=== PATIENT | male | born 1925 | race Caucasian/White ===

== ENCOUNTER 2017-03-02 12:15 | Inpatient (IN) | payer OTHER, MEDICARE ==
[2017-03-02] VITALS (8 sets, daily range): BP systolic 95–114; BP diastolic 61–87
[~2017-03-02] VITALS: Ht 162.6 cm; Wt 104.1 kg
[~2017-03-02 12:15] MED LIST: ADVAIR 250-501 EACH IH; ASPIR-LOW81 M1 PO
[2017-03-02 12:54] LABS: HEMATOCRIT 47.5 % (38.0-50.0); MCH 29.8 PG (29.0-34.0); MCHC 29.7 G/DL (30.0-36.0); MCV 100.4 FL (86-99); MEAN PLAT.VOLUME 9.1 uM^3 (9.0-12.4); NRBC (%) 0.3 /100 WBC (0-0); PLATELET COUNT 205 K/uL (156-360); RBC DIS.WIDTH-CV 12.9 % (11.8-14.6); RBC DIS.WIDTH-SD 48.4 % (39-53); RED BLOOD COUNT 4.73 M/uL (4.00-5.50); WHITE BLOOD COUNT 6.4 K/uL (4.1-10.2)
[2017-03-02 12:54] LABS: CARBON DIOXIDE (BICARBONATE) > 40.0 MEQ/L (20-31); VENOUS PCO2 90 mm Hg (41-51)
[2017-03-02 13:05] LABS: CHLORIDE 100 mEq/L (99-109); POTASSIUM 4.8 mEq/L (3.7-5.4); SODIUM 144 mEq/L (136-147)
[2017-03-02 13:07] LABS: GLUCOSE 165 mg/dL (70-99)
[2017-03-02 13:08] LABS: ANION GAP 9 MEQ/L (2-14)
[2017-03-02 13:10] LABS: GFR ESTIMATE (CALCULATED) > 59 mL/min/
[2017-03-02 13:11] LABS: UREA NITROGEN (BUN) 40 mg/dL (9-23)
[2017-03-02 13:20] LABS: TROP-I INTERPRETATION NEGATIVE; TROPONIN-I 0.03 ng/mL (0.0-0.30)
[2017-03-02 13:35] LABS: EOSINOPHIL (%) 0.2 % (0-5); IMMATURE GRANULOCYTE (%) 0.3 % (0.0-0.7); INSTRUMENT ABS NEUTROPHIL CT 4.4 K/uL; LYMPHOCYTE COUNT 1.1 K/uL (1.0-2.8); MONOCYTE (%) 13.8 % (3-12); MONOCYTE COUNT 0.9 K/uL (0-0.8); NEUTROPHIL (%) 68.1 % (45-76); NEUTROPHIL COUNT 4.4 K/uL (1.8-6.4)
[2017-03-02 14:20] LABS: BASE EXCESS 7.1 mEq/L (-3 to +3); BICARBONATE 36.3 mEq/L (22-26); CARBOXY HGB 2.5 % (0-5); COMMENTS - BLOOD GASES A+C+; DEVICE 840; MODE SPONT; PCO2 72 mm Hg (35-45); PEEP 5 CM/H20; PO2 51 mm Hg (80-100); PRES. SUPPORT 10 CM/H2O; SITE LR; TOTAL RESP RATE 20 resp/min; pH 7.31 (7.35-7.45)
[2017-03-02] MEDS ORDERED: AZITHROMYCIN250 MG PO (15:17)
[2017-03-02] MEDS ORDERED: SPIRIVA1 INHALATI IH (15:17)
[2017-03-02] MEDS ORDERED: PREDNISONE20 MG PO (15:17)
[2017-03-02] MEDS ORDERED: ADVAIR 250/501 DISK IH (15:18)
[2017-03-02] MEDS ORDERED: METFORMIN HCL500 MG PO (15:19)
[2017-03-02] MEDS ORDERED: FUROSEMIDE40 MG PO (15:20)
[2017-03-02] MEDS ORDERED: LATANOPROST2.5 ML BOTH EYES (15:21)
[2017-03-02] MEDS ORDERED: POTASSIUM CHLO20 ME1 PO (15:21)
[2017-03-02] MEDS ORDERED: IRON18 MG PO (15:22)
[2017-03-02] MEDS ORDERED: SIMVASTATIN20 MG PO (15:22)
[2017-03-02 18:33] LABS: POINT-OF-CARE METER ID UU14208751
[2017-03-02 19:00] LABS: MAGNESIUM 2.3 mg/dL (1.3-2.7)
[2017-03-02 19:20] LABS: BASE EXCESS 5.6 mEq/L (-3 to +3); BICARBONATE 33.1 mEq/L (22-26); CARBOXY HGB 2.3 % (0-5); COMMENTS - BLOOD GASES C+; DEVICE 840; FI02 100 %; METHEMOGLOBIN 1.3 % (0-1.5); MODE NSPONT; PCO2 60 mm Hg (35-45); PEEP 8 CM/H20; PO2 67 mm Hg (80-100); PRES. SUPPORT 12 CM/H2O; SITE LR; TOTAL RESP RATE 22 resp/min; pH 7.35 (7.35-7.45)
[2017-03-02 21:39] LABS: ADD MIUA? YES; BILIRUBIN NEGATIVE; BLOOD LARGE; COLOR YELLOW ((YELLOW)); GLUCOSE (STRIP) NEGATIVE; KETONES NEGATIVE; LEUKOCYTES NEGATIVE; NITRITE NEGATIVE; PROTEIN (STRIP) NEGATIVE; SPECIFIC GRAVITY 1.012 (1.000-1.030); UROBILINOGEN 0.2 MG/DL (0.2-1.0)
[2017-03-02 22:12] LABS: METH RESISTANT S AUREUS PCR NEGATIVE (NEGATIVE)
[2017-03-02 22:13] LABS: PROBE CHECK PASS; SPECIMEN PROCESSING CONTROL PASS
[2017-03-02 22:32] LABS: BACTERIA 1+ /HPF; EPITHELIAL CELLS 2+ /HPF; MUCUS NONE SEEN /LPF; RED BLOOD CELLS TNTC /HPF (0-5); UCUL ADDED? NO; WHITE BLOOD CELLS 0-5 /HPF (0-5)
[2017-03-03] VITALS (21 sets, daily range): BP systolic 41–118; BP diastolic 29–77
[2017-03-03 00:15] LABS: POINT-OF-CARE METER ID UU14174217
[2017-03-03 01:01] LABS: CREATINE KINASE 120 IU/L (1-294); TOTAL CK 120 IU/L (1-294)
[2017-03-03 01:09] LABS: CK-MB 1.2 ng/mL (0.0-4.9); TROP-I INTERPRETATION NEGATIVE; TROPONIN-I 0.02 ng/mL (0.0-0.30)
[2017-03-03 05:38] LABS: EOSINOPHIL (%) 0 % (0-5); HEMATOCRIT 42.1 % (38.0-50.0); IMMATURE GRANULOCYTE (%) 0.4 % (0.0-0.7); INSTRUMENT ABS NEUTROPHIL CT 4.2 K/uL; LYMPHOCYTE COUNT 0.3 K/uL (1.0-2.8); MCH 29.6 PG (29.0-34.0); MCHC 30.4 G/DL (30.0-36.0); MCV 97.5 FL (86-99); MEAN PLAT.VOLUME 9.7 uM^3 (9.0-12.4); MONOCYTE COUNT 0.4 K/uL (0-0.8); NEUTROPHIL (%) 85.1 % (45-76); NEUTROPHIL COUNT 4.2 K/uL (1.8-6.4); PLATELET COUNT 181 K/uL (156-360); RBC DIS.WIDTH-CV 12.7 % (11.8-14.6); RBC DIS.WIDTH-SD 45.9 % (39-53); RED BLOOD COUNT 4.32 M/uL (4.00-5.50); WHITE BLOOD COUNT 4.9 K/uL (4.1-10.2)
[2017-03-03 06:03] LABS: TROP-I INTERPRETATION NEGATIVE; TROPONIN-I 0.02 ng/mL (0.0-0.30)
[2017-03-03 06:29] LABS: ANION GAP 4 MEQ/L (2-14); CHLORIDE 99 MEQ/L (99-109); CREATINE KINASE 34 IU/L (1-294); GFR ESTIMATE (CALCULATED) 55 mL/min/; MAGNESIUM 2.8 mg/dl (1.3-2.7); SAMPLE HEMOLYSIS CHECK 0; SAMPLE ICTERIC CHECK 0; SAMPLE LIPEMIA CHECK 0; SODIUM 140 MEQ/L (136-147); TOTAL CK 34 IU/L (1-294); UREA NITROGEN (BUN) 44 mg/dL (9-23)
[2017-03-03 06:30] LABS: GLUCOSE 296 mg/dL (70-99)
[2017-03-03 07:32] LABS: CK-MB 1.2 ng/mL (0.0-4.9)
[2017-03-03 08:25] LABS: INTERNAL CONTROL VALID? YES
[2017-03-03 13:15] LABS: CREATINE KINASE 47 IU/L (1-294); TOTAL CK 47 IU/L (1-294)
[2017-03-03 13:26] LABS: CK-MB 1.7 ng/mL (0.0-4.9)
[2017-03-03 13:45] LABS: TROP-I INTERPRETATION NEGATIVE; TROPONIN-I 0.03 ng/mL (0.0-0.30)
[2017-03-03] MEDS ORDERED: IRON325 M1 PO (16:10)
[2017-03-03 17:58] LABS: POINT-OF-CARE METER ID UU14208751
[2017-03-03 19:13] LABS: TROP-I INTERPRETATION NEGATIVE; TROPONIN-I 0.03 ng/mL (0.0-0.30)
[2017-03-03 19:25] LABS: TOTAL CK 93 IU/L (1-294)
[2017-03-03 19:33] LABS: CREATINE KINASE 93 IU/L (1-294)
[2017-03-04] VITALS (13 sets, daily range): BP systolic 100–141; BP diastolic 58–99
[2017-03-04 01:50] LABS: BASE EXCESS 8.9 mEq/L (-3 to +3); BICARBONATE 35.9 mEq/L (22-26); CARBOXY HGB 2.1 % (0-5); METHEMOGLOBIN 1.5 % (0-1.5); PCO2 58 mm Hg (35-45); PO2 77 mm Hg (80-100)
[2017-03-04 01:51] LABS: COMMENTS - BLOOD GASES A+C+; DEVICE NRB; FI02 100 %; O2 FLOW 15 L/MIN; SITE LR; TOTAL RESP RATE 20 resp/min
[2017-03-04 05:31] LABS: POINT-OF-CARE METER ID UU14162636
[2017-03-04 05:40] LABS: EOSINOPHIL (%) 0 % (0-5); IMMATURE GRANULOCYTE (%) 0.4 % (0.0-0.7); INSTRUMENT ABS NEUTROPHIL CT 6.8 K/uL; LYMPHOCYTE COUNT 0.5 K/uL (1.0-2.8); MCHC 31.1 G/DL (30.0-36.0); MCV 96.3 FL (86-99); MEAN PLAT.VOLUME 9.4 uM^3 (9.0-12.4); MONOCYTE (%) 4.4 % (3-12); MONOCYTE COUNT 0.3 K/uL (0-0.8); NEUTROPHIL (%) 89.2 % (45-76); NEUTROPHIL COUNT 6.8 K/uL (1.8-6.4); PLATELET COUNT 228 K/uL (156-360); RBC DIS.WIDTH-CV 12.6 % (11.8-14.6); RBC DIS.WIDTH-SD 44.9 % (39-53); RED BLOOD COUNT 4.57 M/uL (4.00-5.50); WHITE BLOOD COUNT 7.7 K/uL (4.1-10.2)
[2017-03-04 06:07] LABS: ANION GAP 9 MEQ/L (2-14); CHLORIDE 99 MEQ/L (99-109); GFR ESTIMATE (CALCULATED) 55 mL/min/; GLUCOSE 184 mg/dL (70-99); MAGNESIUM 2.5 mg/dl (1.3-2.7); POTASSIUM 4.3 MEQ/L (3.7-5.4); SAMPLE HEMOLYSIS CHECK 0; SAMPLE ICTERIC CHECK 0; SAMPLE LIPEMIA CHECK 0; SODIUM 140 MEQ/L (136-147); UREA NITROGEN (BUN) 45 mg/dL (9-23)
[2017-03-04 17:48] LABS: BICARBONATE 34.3 mEq/L (22-26); CARBOXY HGB 1.9 % (0-5); METHEMOGLOBIN 1.3 % (0-1.5); PCO2 58 mm Hg (35-45); pH 7.38 (7.35-7.45)
[2017-03-04 17:49] LABS: COMMENTS - BLOOD GASES C+NA; PO2 60 mm Hg (80-100); SITE RR
[2017-03-04 17:50] LABS: DEVICE HEATED HIGH FLOW NC; FI02 70 %; O2 FLOW 50 L/MIN
[2017-03-05] VITALS (9 sets, daily range): BP systolic 98–131; BP diastolic 58–87
[2017-03-05 05:42] LABS: EOSINOPHIL (%) 0 % (0-5); HEMATOCRIT 46.7 % (38.0-50.0); IMMATURE GRANULOCYTE (%) 0.6 % (0.0-0.7); INSTRUMENT ABS NEUTROPHIL CT 4.3 K/uL; LYMPHOCYTE COUNT 0.4 K/uL (1.0-2.8); MCH 29.5 PG (29.0-34.0); MCV 94.9 FL (86-99); MEAN PLAT.VOLUME 9.5 uM^3 (9.0-12.4); MONOCYTE (%) 6.9 % (3-12); MONOCYTE COUNT 0.4 K/uL (0-0.8); NEUTROPHIL COUNT 4.3 K/uL (1.8-6.4); PLATELET COUNT 256 K/uL (156-360); RBC DIS.WIDTH-CV 12.7 % (11.8-14.6); RBC DIS.WIDTH-SD 44.6 % (39-53); RED BLOOD COUNT 4.92 M/uL (4.00-5.50); WHITE BLOOD COUNT 5.1 K/uL (4.1-10.2)
[2017-03-05 06:15] LABS: ANION GAP 7 MEQ/L (2-14); CHLORIDE 99 MEQ/L (99-109); GFR ESTIMATE (CALCULATED) 43 mL/min/; GLUCOSE 219 mg/dL (70-99); MAGNESIUM 2.7 mg/dl (1.3-2.7); SAMPLE HEMOLYSIS CHECK 0; SAMPLE ICTERIC CHECK 0; SAMPLE LIPEMIA CHECK 0; SODIUM 141 MEQ/L (136-147); UREA NITROGEN (BUN) 54 mg/dL (9-23)
[2017-03-05 09:15] LABS: POINT-OF-CARE METER ID UU14162636
[2017-03-05 12:33] LABS: POINT-OF-CARE METER ID UU14162636
[2017-03-05 18:04] LABS: POINT-OF-CARE METER ID UU14162636
[2017-03-06] VITALS (16 sets, daily range): BP systolic 101–164; BP diastolic 57–82
[2017-03-06 05:28] LABS: POINT-OF-CARE METER ID UU14174217
[2017-03-06 05:47] LABS: EOSINOPHIL (%) 0 % (0-5); HEMATOCRIT 46.9 % (38.0-50.0); IMMATURE GRANULOCYTE (%) 0.4 % (0.0-0.7); INSTRUMENT ABS NEUTROPHIL CT 4.8 K/uL; LYMPHOCYTE COUNT 0.4 K/uL (1.0-2.8); MCH 29.8 PG (29.0-34.0); MCHC 31.8 G/DL (30.0-36.0); MCV 93.8 FL (86-99); MEAN PLAT.VOLUME 9.6 uM^3 (9.0-12.4); MONOCYTE (%) 5.7 % (3-12); MONOCYTE COUNT 0.3 K/uL (0-0.8); NEUTROPHIL COUNT 4.8 K/uL (1.8-6.4); PLATELET COUNT 239 K/uL (156-360); RBC DIS.WIDTH-CV 12.6 % (11.8-14.6); RBC DIS.WIDTH-SD 43.5 % (39-53); WHITE BLOOD COUNT 5.6 K/uL (4.1-10.2)
[2017-03-06 06:41] LABS: ANION GAP 7 MEQ/L (2-14); CHLORIDE 100 MEQ/L (99-109); GFR ESTIMATE (CALCULATED) 47 mL/min/; GLUCOSE 246 mg/dL (70-99); MAGNESIUM 2.4 mg/dl (1.3-2.7); POTASSIUM 4.1 MEQ/L (3.7-5.4); SAMPLE HEMOLYSIS CHECK 0; SAMPLE ICTERIC CHECK 0; SAMPLE LIPEMIA CHECK 0; SODIUM 139 MEQ/L (136-147); UREA NITROGEN (BUN) 54 mg/dL (9-23)
[2017-03-07 03:00] VITALS: BP 128/70
[2017-03-07 05:43] LABS: EOSINOPHIL (%) 0 % (0-5); HEMATOCRIT 46.1 % (38.0-50.0); IMMATURE GRANULOCYTE (%) 0.3 % (0.0-0.7); INSTRUMENT ABS NEUTROPHIL CT 5.7 K/uL; LYMPHOCYTE COUNT 0.5 K/uL (1.0-2.8); MCH 29.4 PG (29.0-34.0); MCHC 31.9 G/DL (30.0-36.0); MCV 92.2 FL (86-99); MEAN PLAT.VOLUME 9.4 uM^3 (9.0-12.4); MONOCYTE (%) 6.6 % (3-12); MONOCYTE COUNT 0.4 K/uL (0-0.8); NEUTROPHIL (%) 85.3 % (45-76); NEUTROPHIL COUNT 5.7 K/uL (1.8-6.4); PLATELET COUNT 227 K/uL (156-360); RBC DIS.WIDTH-CV 12.4 % (11.8-14.6); WHITE BLOOD COUNT 6.7 K/uL (4.1-10.2)
[2017-03-07 06:12] LABS: ANION GAP 5 MEQ/L (2-14); CHLORIDE 97 MEQ/L (99-109); GFR ESTIMATE (CALCULATED) 43 mL/min/; GLUCOSE 230 mg/dL (70-99); MAGNESIUM 2.3 mg/dl (1.3-2.7); POTASSIUM 3.9 MEQ/L (3.7-5.4); SAMPLE HEMOLYSIS CHECK 0; SAMPLE ICTERIC CHECK 0; SAMPLE LIPEMIA CHECK 0; SODIUM 136 MEQ/L (136-147); UREA NITROGEN (BUN) 49 mg/dL (9-23)
[2017-03-07 09:13] VITALS: BP 121/61
[2017-03-07 11:53] VITALS: BP 129/76
[2017-03-07 12:03] LABS: POINT-OF-CARE USER ID NUTSLF44
[2017-03-07 16:57] VITALS: BP 126/68
[2017-03-07 19:30] VITALS: BP 127/73
[2017-03-08] VITALS: BP 122/76
[2017-03-08 04:02] VITALS: BP 124/70
[2017-03-08 05:47] LABS: EOSINOPHIL (%) 0 % (0-5); HEMATOCRIT 47.9 % (38.0-50.0); IMMATURE GRANULOCYTE (%) 0.4 % (0.0-0.7); LYMPHOCYTE COUNT 0.4 K/uL (1.0-2.8); MCH 29.6 PG (29.0-34.0); MCHC 32.2 G/DL (30.0-36.0); MCV 92.1 FL (86-99); MEAN PLAT.VOLUME 9.7 uM^3 (9.0-12.4); MONOCYTE (%) 5.6 % (3-12); MONOCYTE COUNT 0.4 K/uL (0-0.8); PLATELET COUNT 225 K/uL (156-360); RBC DIS.WIDTH-CV 12.3 % (11.8-14.6); RBC DIS.WIDTH-SD 41.9 % (39-53); WHITE BLOOD COUNT 7.8 K/uL (4.1-10.2)
[2017-03-08 06:19] LABS: ANION GAP 5 MEQ/L (2-14); CHLORIDE 96 MEQ/L (99-109); GFR ESTIMATE (CALCULATED) 41 mL/min/; GLUCOSE 209 mg/dL (70-99); MAGNESIUM 2.4 mg/dl (1.3-2.7); POTASSIUM 4.5 MEQ/L (3.7-5.4); SAMPLE HEMOLYSIS CHECK 0; SAMPLE ICTERIC CHECK 0; SAMPLE LIPEMIA CHECK 0; SODIUM 137 MEQ/L (136-147); UREA NITROGEN (BUN) 47 mg/dL (9-23)
[2017-03-08 09:38] VITALS: BP 126/72
[2017-03-08 12:02] VITALS: BP 138/79
[2017-03-08 12:15] LABS: POINT-OF-CARE USER ID ENVKC36
[2017-03-08 13:28] LABS: BASE EXCESS 4.5 mEq/L (-3 to +3); BICARBONATE 30.9 mEq/L (22-26); CARBOXY HGB 1.9 % (0-5); COMMENTS - BLOOD GASES +C; DEVICE NC; METHEMOGLOBIN 1.5 % (0-1.5); O2 FLOW 5 L/MIN; PCO2 51 mm Hg (35-45); PO2 56 mm Hg (80-100); SITE RR +A; TOTAL RESP RATE 24 resp/min; pH 7.39 (7.35-7.45)
[2017-03-08 16:46] LABS: POINT-OF-CARE USER ID ENVKC36
[2017-03-08 17:39] VITALS: BP 142/72
[2017-03-08 19:15] VITALS: BP 132/76
[2017-03-09] VITALS (7 sets, daily range): BP systolic 110–149; BP diastolic 58–83
[2017-03-09 05:15] LABS: EOSINOPHIL (%) 0 % (0-5); HEMATOCRIT 46.5 % (38.0-50.0); IMMATURE GRANULOCYTE (%) 0.5 % (0.0-0.7); INSTRUMENT ABS NEUTROPHIL CT 6.7 K/uL; LYMPHOCYTE COUNT 0.3 K/uL (1.0-2.8); MCH 30.9 PG (29.0-34.0); MCHC 33.5 G/DL (30.0-36.0); MCV 92.1 FL (86-99); MEAN PLAT.VOLUME 9.9 uM^3 (9.0-12.4); MONOCYTE (%) 4.2 % (3-12); MONOCYTE COUNT 0.3 K/uL (0-0.8); NEUTROPHIL (%) 90.7 % (45-76); NEUTROPHIL COUNT 6.7 K/uL (1.8-6.4); PLATELET COUNT 211 K/uL (156-360); RBC DIS.WIDTH-CV 12.6 % (11.8-14.6); RBC DIS.WIDTH-SD 42.5 % (39-53); RED BLOOD COUNT 5.05 M/uL (4.00-5.50); WHITE BLOOD COUNT 7.4 K/uL (4.1-10.2)
[2017-03-09 05:44] LABS: ANION GAP 11 MEQ/L (2-14); CHLORIDE 96 MEQ/L (99-109); GFR ESTIMATE (CALCULATED) 43 mL/min/; GLUCOSE 279 mg/dL (70-99); MAGNESIUM 2.4 mg/dl (1.3-2.7); POTASSIUM 4.6 MEQ/L (3.7-5.4); SAMPLE HEMOLYSIS CHECK 0; SAMPLE ICTERIC CHECK 0; SAMPLE LIPEMIA CHECK 0; SODIUM 135 MEQ/L (136-147); UREA NITROGEN (BUN) 41 mg/dL (9-23)
[2017-03-10 05:01] VITALS: BP 133/80
[2017-03-10 05:23] LABS: EOSINOPHIL (%) 0 % (0-5); IMMATURE GRANULOCYTE (%) 0.4 % (0.0-0.7); LYMPHOCYTE COUNT 0.5 K/uL (1.0-2.8); MCH 29.2 PG (29.0-34.0); MCHC 32.2 G/DL (30.0-36.0); MCV 90.9 FL (86-99); MEAN PLAT.VOLUME 9.5 uM^3 (9.0-12.4); MONOCYTE COUNT 0.6 K/uL (0-0.8); NEUTROPHIL (%) 87.9 % (45-76); PLATELET COUNT 218 K/uL (156-360); RBC DIS.WIDTH-CV 12.5 % (11.8-14.6); RBC DIS.WIDTH-SD 41.6 % (39-53); RED BLOOD COUNT 5.06 M/uL (4.00-5.50); WHITE BLOOD COUNT 9.1 K/uL (4.1-10.2)
[2017-03-10 05:50] LABS: ANION GAP 6 MEQ/L (2-14); CHLORIDE 95 MEQ/L (99-109); GFR ESTIMATE (CALCULATED) 55 mL/min/; GLUCOSE 268 mg/dL (70-99); MAGNESIUM 2.3 mg/dl (1.3-2.7); POTASSIUM 4.1 MEQ/L (3.7-5.4); SAMPLE HEMOLYSIS CHECK 0; SAMPLE ICTERIC CHECK 0; SAMPLE LIPEMIA CHECK 0; SODIUM 135 MEQ/L (136-147); UREA NITROGEN (BUN) 40 mg/dL (9-23)
[2017-03-10 08:08] LABS: POINT-OF-CARE METER ID UU13113698
[2017-03-10 09:00] VITALS: BP 118/52
[2017-03-10] MEDS ORDERED: PREDNISONE20 MG PO (10:23)
[2017-03-10] MEDS ORDERED: CARDIZEM30 MG PO (10:23)
[2017-03-10 12:00] LABS: POINT-OF-CARE METER ID UU13113698
== END 2017-03-10 18:11 | disposition home health service (06) | DRG 189 ==
LOC: EME 12:15 → 4WEST 15:27 → EDOF 15:27 → 4EAST 15:27 → 4WEST 17:45 → 4EAST 03-06 22:42 → CANRESERV 03-09 09:57 → ENRESERV 03-09 09:57 → ENPENDDIS 03-10 → 4EAST 03-10 18:11
PROVIDERS: Emergency Medicine; Hospitalist; Internal Medicine; Internal Medicine Nephrology
PROC: 5A09357 Assistance with Respiratory Ventilation, Less than 24 Consecutive Hours, Continuous Positive Airway Pressure (ICD-10-PCS; principal; 2017-03-02)
DX: J96.21 Acute and chronic respiratory failure with hypoxia (principal); J44.0 Chronic obstructive pulmonary disease with (acute) lower respiratory infection; J15.8 Pneumonia due to other specified bacteria; J44.1 Chronic obstructive pulmonary disease with (acute) exacerbation; E87.4 Mixed disorder of acid-base balance; I13.0 Hypertensive heart and chronic kidney disease with heart failure and stage 1 through stage 4 chronic kidney disease, or unspecified chronic kidney disease; I50.33 Acute on chronic diastolic (congestive) heart failure; E11.22 Type 2 diabetes mellitus with diabetic chronic kidney disease; N18.9 Chronic kidney disease, unspecified; C61 Malignant neoplasm of prostate; I48.0 Paroxysmal atrial fibrillation; E78.5 Hyperlipidemia, unspecified; I25.10 Atherosclerotic heart disease of native coronary artery without angina pectoris; J98.11 Atelectasis; E66.9 Obesity, unspecified; Z66 Do not resuscitate; R00.0 Tachycardia, unspecified; R45.87 Impulsiveness; Z99.81 Dependence on supplemental oxygen; Z68.38 Body mass index [BMI] 38.0-38.9, adult; Z87.891 Personal history of nicotine dependence; Z90.01 Acquired absence of eye; Z95.2 Presence of prosthetic heart valve; Z79.82 Long term (current) use of aspirin
CPT/HCPCS: 36600; 71010; 80048; 81003; 82550; 82550 91; 82553; 82803; 82948; 83735; 83880; 84100; 84484; 85025; 87449; 87641; 93005; 93306; 94002; 94003; 94010; 94640; 94640 76; 94644; 94760; 94799; 99202; 99281; 99285; J1120; J1200; J1644; J1815; J1940; J2543; J2920; J2930; J3370; J3475; J7050; J7512; J7644; S0028